=== PATIENT | female | born 1995 | race Two or more races ===

== ENCOUNTER 2019-11-10 20:13 | Emergency (ER) | payer SELFPAY ==
[~2019-11-10] VITALS: Ht 160 cm; Wt 59.0 kg
[2019-11-10 20:20] VITALS: BP 124/90
--- NOTE | 2019-11-10 20:32 | NUR ---
PT AMBULATED TO BED 06.
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
--- NOTE | 2019-11-10 20:50 | NUR ---
DR LAWSON AT BEDSIDE EXAMINING PT.
--- NOTE | 2019-11-10 21:13 | NUR ---
[place] [employer] AT PT BEDSIDE. OFFICER JEN SPEAKING TO PT AT THIS TIME. CASE #[id number]. OFFICER AURELIO GARZA NUER [id number] OFFICER HAN GARZA NUMBER [id number]
--- NOTE | 2019-11-10 21:38 | NUR ---
PTS FRIEND AT BEDSIDE SPEAKING TO OFFICER AURELIO OF [place].
--- NOTE | 2019-11-10 21:56 | NUR ---
DR LAWSON AT BEDSIDE PERFORMING PROCEDURE.
[2019-11-10] MEDS: LIDOCAINE 2% 1000 MG/50 ML VIAL INJ ONE (22:07)
[2019-11-10] MEDS: BACITRACIN OINT 500 UNITS/GM PKT TP ONE (22:22)
[2019-11-10 22:29] VITALS: BP 124/90
--- NOTE | 2019-11-10 22:29 | NUR ---
Patient discharged with v/s stable. Written and verbal after care instructions given and explained. Patient alert, oriented and verbalized understanding of instructions. Ambulatory with steady gait. All questions addressed prior to discharge. ID band removed. Patient advised to follow up with PMD. Rx of NEOSPORIN TOPICAL OINTMENT given. Patient educated on indication of medication including possible reaction and side effects. Opportunity to ask questions provided and answered.
== END 2019-11-10 22:29 | disposition home or self-care (01) ==
LOC: MED 20:13
DX: S01.81XA Laceration without foreign body of other part of head, initial encounter (principal); Z88.5 Allergy status to narcotic agent; Z88.8 Allergy status to other drugs, medicaments and biological substances; Z91.040 Latex allergy status; Y04.2XXA Assault by strike against or bumped into by another person, initial encounter; Y93.89 Activity, other specified; Y92.512 Supermarket, store or market as the place of occurrence of the external cause; Y99.8 Other external cause status
CPT/HCPCS: 12013; 99283; J2001